=== PATIENT | male | born 1990 | race Hispanic/Latino ===

== ENCOUNTER 2016-07-06 12:38 | Emergency (ER) | payer OTHER ==
[~2016-07-06 12:38] MED LIST: CARAFATE1 G1 PO; FLEXERIL10 MG PO; HYDROCODONE/ACE1 TA1 PO; NAPROSYN 500 M500 MG PO; NASONEX17 GM NASB; PROAIR HFA8.5 GM INH; PROTONIX40 M3 PO
[2016-07-06 12:44] VITALS: BP 129/83
[2016-07-06] MEDS ORDERED: AMOX-CLAV 875-1 EACH PO (14:10)
--- NOTE | 2016-07-06 14:11 | ED EAR COMPLAINT ---
History of Present Illness General Chief Complaint: Ear Complaints Stated Complaint: WATER IN LEFT EAR WITH PAIN Source: patient, family Exam Limitations: language barrier Vital Signs & Intake/Output Vital Signs & Intake/Output Vital Signs Date Time Temp Pulse Resp B/P B/P Pulse O2 O2 Flow FiO2 Mean Ox Delivery Rate 07/06 1244 98.2 81 18 129/83 97 Room Air Allergies Coded Allergies: NO KNOWN ALLERGIES (08/12/15) Reconcile Medications Albuterol Sulfate (Proair Hfa) 8.5 GM HFA.AER.AD 2 PUF INH Q4-6 PRN PRN DYSPNEA Amoxicillin/Clavulanate Potass (Amox-Clav 875-125 MG Tablet) 875 MG-125 MG TABLET 1 TAB PO BID ear infection CYCLOBENZAPRINE HCL (Flexeril) 10 MG TAB 1 TAB PO Q8P PRN SPASMS HYDROCODONE/ACETAMINOPHEN (Hydrocodon-Acetaminophen 5-325) 1 TAB TAB 1 TAB PO Q6P PRN PAIN Mometasone Furoate (Nasonex) 17 GM SPRAY.PUMP 2 SPRAY NASB DAILY RHINITIS Naproxen (Naprosyn) 500 MG TAB 1 TAB PO BID PAIN Pantoprazole Sodium (Protonix) 40 MG TABLET.DR 1 TAB PO DAILY GERD Sucralfate (Carafate) 1 GRAM TABLET 1 TAB PO TID GASTRITIS Triage Note: TRIAGE: PATIENT TO ER FROM HOME REPORTS +PAIN TO L LEAR AND "FEEL WATER AND CAN'T HEAR IN BOTH EARS." PATIENT PRIMARILY CENTRAL AFRICAN SPEAKING, FAMILY ASISSTING W/ TRANSLATION IN TRIAGE. DENIES OTHER COMPLAINTS. Triage Nurses Notes Reviewed? yes HPI: TRIAGE: PATIENT TO ER FROM HOME REPORTS +PAIN TO L LEAR AND "FEEL WATER AND CAN'T HEAR IN BOTH EARS." PATIENT PRIMARILY CENTRAL AFRICAN SPEAKING, FAMILY ASISSTING W/ TRANSLATION IN TRIAGE. DENIES OTHER COMPLAINTS. (TRAV ROWLAND MD) Past History Travel History Traveled to [place] past 21 day No Medical History Any Pertinent Medical History? see below for history Neurological: NONE EENT: NONE Cardiovascular: NONE Respiratory: NONE Gastrointestinal: NONE Hepatic: NONE Renal: NONE Musculoskeletal: NONE Psychiatric: NONE Endocrine: NONE Blood Disorders: NONE Cancer(s): NONE ARCHEOLOGIST/Reproductive: NONE Surgical History Surgical History: N Psychosocial History What is your primary language Frisian Tobacco Use: Never used Family History Hx Contributory? No (TRAV ROWLAND MD) Review of Systems Review of Systems Constitutional: Reports: no symptoms. EENTM: Reports: ear pain, hearing changes. Respiratory: Reports: no symptoms. Cardiovascular: Reports: no symptoms. GI: Reports: no symptoms. Musculoskeletal: Reports: no symptoms. Skin: Reports: no symptoms. Neurological/Psychological: Reports: no symptoms. Hematologic/Endocrine: Reports: no symptoms. Immunologic/Allergic: Reports: no symptoms. All Other Systems: Reviewed and Negative (TRAV ROLWAND MD) Physical Exam Physical Exam General Appearance: well developed/nourished, mild distress Head: atraumatic Eyes: Bilateral: normal appearance, PERRL, EOMI. Ears: Bilateral: other (bilateral cerumen impaction). Nose: normal inspection Neck: normal inspection, supple Cardiovascular/Respiratory: normal breath sounds, regular rate/rhythm Back: normal inspection Neurologic/Psych: awake, alert, oriented x 3, normal mood/affect Skin: intact, normal color, warm/dry (TRAV ROWLAND MD) Progress Differential Diagnoses I considered the following diagnoses in my evaluation of the patient: Otitis media, and cerumen impaction, myringitis, otitis externa, viral URI, labyrinthitis. Plan of Care: Patient is generally well-appearing with no acute complaints at this time other than decreased hearing from both ears. Patient noted to have some itching. Bilateral cerumen impaction in both ears. No fevers or chills, no changes in vision. No headaches no other complaints. Hydroperoxide was placed in a chair a lot to sit for several minutes before urinating with several 100 mL of warm water. A significant amount of cerumen was removed both manually with a plastic ear spatula as well as with irrigation. Patient had significant improvement in symptoms. Some dullness noted in TM. Patient will be given one week of Augmentin for otitis media given the dull TM. Keep the patient information for follow-up with his PCP. Also instructed the patient to allow warm water to soften the ear wax on a regular basis as to prevent further impactions from forming. There is no evidence of otitis externa to suggest that this harmful. Patient given return precautions. Initial ED EKG: none (TRAV ROWLAND MD) Departure Departure Time of Disposition: 1404 Disposition: HOME OR SELF CARE Condition: Stable Clinical Impression Primary Impression: Cerumen impaction Qualifiers: Laterality: bilateral Qualified Code: H61.23 - Impacted cerumen, bilateral Secondary Impressions: Decreased hearing Qualifiers: Laterality: bilateral Qualified Code: H91.93 - Unspecified hearing loss, bilateral Left ear pain Referrals: PATIENT HAS NO PRIMARY CARE DR (PCP/Family) Additional Instructions: Please take the full course of antibiotics. Make sure you allow warm water to hit your ear every time you shower to help melt the wax. You can use peroxide in the ear to help melt the wax, use over the counter Debrox or liquid colace. If you develop fever, worsening hearing, or any other concerning symptoms, please return to the ED. I will be around on July 11, 11am-9pm. You can come back to the ED if your ear is still bothering you. Departure Forms: Customer Survey General Discharge Information Prescriptions: Current Visit Scripts Amoxicillin/Clavulanate Potass (Amox-Clav 875-125 MG Tablet) 1 TAB PO BID #10 TAB (TRAV ROWLAND MD) Resident Co-Sign Statement Statement: ED Attending supervision documentation- [X] I saw and evaluated the patient. I have also reviewed all the pertinent lab results and diagnostic results. I agree with the findings and the plan of care as documented in the Resident's documentation. [X] I have reviewed the ED Record and agree with the Resident's documentation. [] Additions or exceptions (if any) to the Resident's note and plan are summarized below: [] (GHANSHYAM TALAVERA,SHARI Mcgowan) Procedures Additional Procedures Additional Procedures: cerumen impaction and removal Progress: Patient draped w/ towels. Hydrogen peroxide placed in each ear, while patient was in a lateral position allowing the peroxide to sit for several minutes. Following this, the patient was irrigated with warm saline using a plastic catheter of a 14g IV needle (after needle discarded). Patient irrigated w/ approx 400mL ineachear. significant amount of wax was removed. (TRAV ROWLAND MD)
== END 2016-07-06 14:19 ==
LOC: ERH 12:38
DX: H61.23 Impacted cerumen, bilateral (principal); H91.93 Unspecified hearing loss, bilateral